=== PATIENT | female | born 1980 | race Caucasian/White ===

== ENCOUNTER 2017-02-19 17:44 | Inpatient (IN) ==
[2017-02-19] MEDS ORDERED: HYDROmorphone 2 MG/1 ML VIAL IV STA ×2 (20:06→23:18)
[2017-02-19] MEDS ORDERED: SODIUM CHLORIDE 0.9% 500 ML IV STA (20:06)
[2017-02-19] MEDS ORDERED: PANTOPRAZOLE 40 MG VIAL IV STA (20:06)
[2017-02-19] MEDS ORDERED: ONDANSETRON 4 MG/2 ML VIAL IV STA ×2 (20:06→23:18)
[2017-02-19] MEDS ORDERED: ALUM/MAG/SIMETH/LIDO VISC 1:1 30 ML BOTTLE PO STA (20:06)
[2017-02-19 20:23] LABS: Basophils # 0.1 10*3/uL (0.0-0.2); Basophils % 0.7 % (0.0-0.8); Eosinophils # 0.3 10*3/uL (0.0-0.87); Eosinophils % 2.7 % (0.00-10.9); Hematocrit 39.4 VOL% (35.7-47.0); Hemoglobin 12.6 GM/DL (12.0-16.0); Immature Granulocytes % 0.3 %; Immature Granulocytes Absolute 0.03 #; Lymphocytes % 30.5 % (21.3-54.2); Mean Corpuscular Hemoglobin 28 PG (27-34); Mean Corpuscular Volume 86.8 FL (87-102); Mean Platelet Volume 9.9 FL (9.6-12.0); Monocytes # 0.7 10*3/uL (0.11-0.8); Monocytes % 7.5 % (1.7-12.7); Neutrophils # 5.8 10*3/uL (1.4-7.4); Neutrophils % 58.3 % (38.7-73.9); Platelet Count 331 T/CUMM (130-400); Red Blood Count 4.54 MC/CUMM (3.8-5.5); Red Cell Distribution Width 15.1 % (9.3-17.3); White Blood Count 9.9 T/CUMM (4-12)
[2017-02-19] MEDS ORDERED: PANTOPRAZOLE 40 MG VIAL IV ONE (20:23)
[2017-02-19] MEDS ORDERED: ONDANSETRON 4 MG/2 ML VIAL ONE ×2 (20:23→23:22)
[2017-02-19] MEDS ORDERED: ALUM/MAG/SIMETH/LIDO VISC 1:1 30 ML BOTTLE PO ONE (20:24)
[2017-02-19] MEDS ORDERED: HYDROmorphone 2 MG/1 ML VIAL ONE ×2 (20:24→23:22)
--- NOTE | 2017-02-19 20:52 | Ultrasound Report ---
Exam: US gallbladder Date: 02/19/2017 8:06 PM Comparison: None Indication: Biliary colic Technique:[Multiple transabdominal real-time scans were obtained of the right upper quadrant. Color-flow scans obtained. Ultrasound images were captured and stored.] Findings: Multiple hyperechoic foci in the gallbladder with posterior acoustical shadowing. The wall of the gallbladder measures 4.2 mm. CBD is normal in size measuring 3.4 mm. The liver is enlarged with fatty infiltration. Right kidney measures 119 mm length with no mass masses or hydronephrosis. The pancreas, aorta including the aortic bifurcation, and IVC are obscured by bowel gas. Color flow documented in the portal vein. Impression: Cholelithiasis. The wall of the gallbladder is minimally thickened which may be related to acute cholecystitis. Biliary scan with ejection fraction may be helpful for further evaluation. Minimal enlargement of the liver with probable fatty infiltration. Pancreas and aorta are obscured by bowel gas. PROCEDURE INTERPRETED AT [facility] DEPARTMENT OF RADIOLOGY Final Report Signed by: Dr. Margarita Magaña
[2017-02-19 20:59] LABS: Alanine Aminotransferase 56 U/L (13-56); Albumin 4.1 G/DL (3.4-5.0); Alkaline Phosphatase 58 U/L (45-117); Amylase 52 U/L (25-115); Aspartate Amino Transferase 27 U/L (0-37); Blood Urea Nitrogen 13 MG/DL (7-18); Calcium 8.7 MG/DL (8.5-10.1); Glucose 84 MG/DL (74-106); Magnesium 2.2 MG/DL (1.8-2.4); Potassium 4.1 MMOL/L (3.5-5.1); Sodium 143 MMOL/L (136-145); Total Protein 7.6 G/DL (6.4-8.3); Troponin I Only < 0.015 NG/ML (0.00-0.045)
--- NOTE | 2017-02-19 21:05 | Emergency Department Note ---
Jess Macdonald Brittany, am scribing for, and in the presence of, Kamran Salinas MD 20:23. Rita Macdonald Charles R, MD, personally performed the services described in this documentation, ascribed by Teresita Mercado in my presence, and it is both accurate and complete . Arrival - Arrival Chief Complaint: Abdominal / Flank Pain Stated Complaint: gallbladder. pain/ nausea ED Nursing Triage Note: Pt c/o abd pain with nausea that got worse today. States she was told that she had gallbladder disease and needs a surgical consult but has not yet. Mode of Arrival: Ambulatory Limitations: No Limitations Source: Patient Time Seen by Provider: 02/19/17 19:50 - History of Present Illness HPI Narrative: This is a 36 y/o white female,who presents to the ED with c/o abdominal pain which started 4 days ago. She states the pain intensified today. She localizes the pain to the RUQ and epigastric areas of the abdomen. She reports nausea and vomiting. Pt reports she was seen at a "clinic" and had a US preformed which showed gallstones. Pt denies any other complaints/pain the ED at this time. Pt has a PMHx of HTN. Pt denies a surgical Hx. Pt denies a family medical Hx. Pt is a current every day smoker. Onset (ago): day(s) (Started 4 days ago) Consistency: constant Severity: moderate Date of Last Menstrual Period: last wk in December Allergies/Adverse Reactions: Allergies Allergy/AdvReac Type Severity Reaction Status Date / Time meperidine [From Demerol] AdvReac Palpitation Verified 02/19/17 18:01 s Home Medications: Home Medications Medication Instructions Recorded Confirmed Type Triamterene/Hydrochlorothiazid 0.5 each PO DAILY 02/19/17 02/19/17 History [Triamterene-Hctz 37.5-25 mg Tb] Review of System - Review of System 12 point system: reviewed and no additional remarkable complaints except as stated - Review of System Gastrointestinal: Present: abdominal pain, nausea, vomiting Medical,Surgical,& Family Hx - Medical History Cardio: History of: Hypertension - Social History Smoking Status: Current every day smoker Exam Vital Signs: Vital Signs Temperature 98.9 F 02/19/17 21:09 Pulse Rate 78 02/19/17 21:09 Respiratory Rate 16 02/19/17 21:09 Blood Pressure 181/113 02/19/17 21:09 O2 Sat by Pulse Oximetry 98 02/19/17 17:59 - General General appearance: alert, in no apparent distress - Head Head exam: Present: atraumatic, normocephalic, normal inspection - Eye Eye exam: Present: normal appearance, PERRL, EOMI. Absent: conjunctival injection, nystagmus, miosis, mydriasis - ENT ENT exam: Present: normal exam, normal oropharynx, mucous membranes moist, TM's normal bilaterally - Neck Neck exam: Present: normal inspection, full ROM, trachea midline. Absent: tenderness, meningismus, lymphadenopathy, thyromegaly - Chest Chest inspection: Present: normal inspection, symmetric chest wall rise. Absent : tenderness, rash, abscess - Respiratory Respiratory exam: Present: rhonchi (Bilateral Rhonchi). Absent: normal lung sounds bilaterally, prolonged expiratory phase, rales, respiratory distress, stridor, wheezes - Cardiovascular Cardiovascular exam: Present: regular rate, normal rhythm, normal heart sounds. Absent: murmur, rubs, gallop, clicks, JVD - Abdominal Exam Abdominal exam: Present: soft, tenderness (Upper gastric tendnerness as well as RUQ tendneress), normal bowel sounds, tenderness at McBurney's Point (Slight tenderness at McBurney's point), other (Left flank tenderness VS right flank tenderness). Absent: distention, guarding, rebound, rigidity - Rectal Exam Rectal exam: Present: deferred - Extremities Exam Extremities exam: Present: normal inspection, full ROM, normal capillary refill. Absent: tenderness, pedal edema, joint swelling, calf tenderness - Back Exam Back exam: Present: normal inspection, full ROM. Absent: tenderness, muscle spasm, rashes - Neurological Exam Neurological exam: Present: alert, oriented X3, CN II-XII intact. Absent: motor sensory deficit - Psychiatric Psychiatric exam: Present: normal affect, normal mood. Absent: depressed, agitated, anxious, flat affect, manic - Skin Skin exam: Present: warm, dry, intact, normal color. Absent: rash, cyanosis, diaphoresis, erythema, pallor, mottled Course - Consultations Consultation #1: Dr. Lemus will admit patient to the hospital Time: 22:58 Results - Labs CBC & BMP: 02/19/17 20:20 02/19/17 20:20 Lab Results: I have reviewed the patients labs - Diagnostic Findings Procedure: CT Abdomen and Pelvis: image reviewed by me, report reviewed by me ( Cholelithiasis with minimal enlargement of the liver. Cortical scarring in the kidneys with no renal or ureteral calculi. Increased fecal material in the colon consistent with constipation. 90 x 86x 57 mm fat containing midline ventral hernia above the level of the umbilicus. ), Ultrasound: report reviewed by me (Gallbladder US: Cholelithiatis. The wall of the gallbladder is minimally thickened which may be related to acute cholecystitis. Biliary scan with ejection fraction may be helpful for futher evaluation. Minimal enlargement of the liver probable fatty infiltration. Pancreas and aorta are obscured by bowel gas. ) Disposition Clinical Impression: Abdominal pain, Constipation, Cholelithiasis, Acute cholecystitis, Ventral wall hernia Case discussed with: patient Disposition: Still a Patient Condition: Stable Time of Disposition: 22:59
[2017-02-19 21:16] LABS: Barbiturates Screen,Urine Negative (Negative); Benzodiazepines Screen,Urine Negative (Negative); Cannabinoid Screen,Urine Negative (Negative); Opiate Screen,Urine Negative (Negative); Phencyclidine Screen,Urine Negative (Negative)
[2017-02-19 21:19] LABS: Apearance,Urine CLOUDY (Clear); Bacteria,Urine Many /HPF (Few); Bilirubin,Urine Negative (Negative); Blood, Urine Small mg/dL (Negative); Glucose,Urine (UA) Negative (Negative); Ketones,Urine Negative (Negative); Nitrite,Urine Negative (Negative); Protein,Urine Negative; RBC,Urine 7 /HPF (0-4); Squamous Epithelial Cell,Urine Few /HPF (0-10); Urine Color Yellow (Yellow); Urine Specific Gravity 1.009 (1.001-1.035); Urine Urobilinogen < 2.0 EU/DL (0.2-1.0); WBC,Urine 8 /HPF (0-6)
[2017-02-19] MEDS ORDERED: cefTRIAXone 1,000 MG in SODIUM CHLORIDE 0.9% 100 ML IV STA (21:42)
[2017-02-19] MEDS ORDERED: cefTRIAXone 1,000 MG VIAL ONE (21:44)
[2017-02-19] MEDS ORDERED: SODIUM CHLORIDE 0.9% 100 ML IV ONE (21:44)
--- NOTE | 2017-02-19 22:10 | XRay Report ---
Exam: XR abdomen 2V Date: 02/19/2017 8:06 PM Comparison: None Indication: Generalized abdominal pain Technique:[Supine and erect abdomen] Findings: Nonobstructed bowel gas pattern. Increased fecal material in colon. No free air. No acute osseous findings. Spina bifida occulta defect at S1. Transition vertebra. Impression: Nonobstructed bowel gas pattern with increased fecal material consistent with constipation. Spina bifida occulta defect at S1. PROCEDURE INTERPRETED AT [facility] DEPARTMENT OF RADIOLOGY Final Report Signed by: Dr. Margarita Magaña
--- NOTE | 2017-02-19 22:16 | CT Report ---
Referring physician: Kamran Salinas EXAM: CT abdomen and pelvis without contrast DATE: 02/19/2017 COMPARISON: None REASON: Generalized abdominal pain with left flank tenderness TECHNIQUE: Axial images of the abdomen and pelvis were obtained without the use of contrast. Coronal and sagittal reformatted images were also provided. Total DLP is 1668.10 mGy*cm. FINDINGS: Dependent findings/atelectasis in the lower lobes with cardiac fat pads. The liver is minimally enlarged with no dilated ducts. Cholelithiasis. The spleen, pancreas, and kidneys have an unremarkable appearance except for minimal cortical scarring in the kidneys. No renal or ureteral calculi are identified. The adrenal aorta is normal in size with no adjacent adenopathy. No dilatation of the small bowel. Increased fecal material in the colon with no evidence of diverticulitis, appendicitis, free air, or free fluid. No pelvic masses are identified with unremarkable urinary bladder. 90 x 86 x 57 mm fat-containing midline ventral hernia above the level of the umbilicus. IMPRESSION: Cholelithiasis with minimal enlargement of the liver. Cortical scarring in the kidneys with no renal or ureteral calculi. Increased fecal material in the colon consistent with constipation. 90 x 86 x 57 mm fat-containing midline ventral hernia above the level of the umbilicus. The CT exam was performed using one or more of the following dose reduction techniques: Automated exposure control and adjustment of the mA and/or kV according to patient size. PROCEDURE INTERPRETED AT [facility] DEPARTMENT OF RADIOLOGY Final Report Signed by: Dr. Margarita Magaña
[2017-02-20] MEDS: SODIUM CHLORIDE 0.9% 1,000 ML IV SCH ×3 (00:43→18:49)
--- NOTE | 2017-02-20 03:44 | EKG Report ---
Stationary ECG Study [facility] ER Test Date: 02/19/2017 8:38:46 PM Pat Name: YOU YANEZ Department: Room: 342 Gender: F Electrical Systems Designer: FINA JOHNSON : 1980 Requested by: Kamran Jones Order Number: [id number] Reading MD: JESSI SIMEON Intervals [place] Rate: 70 P: 55 SD: 185 QRS: 24 QRSD: 94 T: 24 QT: 391 QTc: 412 Interpretive Statements SINUS RHYTHM WNL Electronically Signed On 02-20-17 09:54:21 CDT by JESSI SIMEON [email or web address]
[2017-02-20 05:15] LABS: Basophils # 0.1 10*3/uL (0.0-0.2); Basophils % 0.6 % (0.0-0.8); Eosinophils # 0.2 10*3/uL (0.0-0.87); Eosinophils % 2.4 % (0.00-10.9); Hematocrit 36.1 VOL% (35.7-47.0); Hemoglobin 11.3 GM/DL (12.0-16.0); Immature Granulocytes % 0.3 %; Immature Granulocytes Absolute 0.03 #; Lymphocytes # 3.4 10*3/uL (1.4-4.0); Lymphocytes % 33.8 % (21.3-54.2); Mean Corpuscular HGB Conc 31.3 GM/DL (32-36); Mean Corpuscular Hemoglobin 27 PG (27-34); Mean Corpuscular Volume 87.6 FL (87-102); Mean Platelet Volume 10.4 FL (9.6-12.0); Monocytes # 0.9 10*3/uL (0.11-0.8); Monocytes % 8.6 % (1.7-12.7); Neutrophils # 5.5 10*3/uL (1.4-7.4); Neutrophils % 54.3 % (38.7-73.9); Platelet Count 317 T/CUMM (130-400); Red Blood Count 4.12 MC/CUMM (3.8-5.5); Red Cell Distribution Width 15.2 % (9.3-17.3); White Blood Count 10.2 T/CUMM (4-12)
[2017-02-20 05:57] LABS: Albumin 3.6 G/DL (3.4-5.0); Bilirubin,Total 0.8 MG/DL (0.2-1.0); Calcium 8.4 MG/DL (8.5-10.1); Magnesium 2.5 MG/DL (1.8-2.4); Osmolality,Calculated 286.8 MOS/KG (273-304); Potassium 4.3 MMOL/L (3.5-5.1); Total Protein 6.8 G/DL (6.4-8.3)
--- NOTE | 2017-02-20 07:52 | General Surg History&Physical ---
Assessment and Plan - Time spent with patient Time spent with patient: Greater than 30 minutes (1) Epigastric hernia with obstruction Status: Acute Assessment and plan: 02/20/17 Large incarcerated epigastric abdominal hernia. CT indicates there is only fat incarcerated at this time. We will plan to approach this area for the lap cholecystectomy and formally repair-either with or without a mesh closure- at the end of the lap cholecystectomy. This has been discussed with the patient by Dr Lemus, including risks, benefits, potential alternatives and complications , and she wishes to proceed. Current Visit: Yes (2) Acute cholecystitis Status: Acute Assessment and plan: 02/20/17 Acute, likely also with chronic cholecystitis with cholelithiasis. No imaging or lab evidence of obstruction. We have discussed surgery and she is anxious to proceed. Will plan for later today. Current Visit: Yes History of Present Illness Chief complaint: Abdominal pain, intractible History of present illness: Ms. Gaytan is a 36 year old female Home Medications Medication Instructions Recorded Confirmed Type Triamterene/Hydrochlorothiazid 0.5 each PO DAILY 02/19/17 02/19/17 History [Triamterene-Hctz 37.5-25 mg Tb] Allergies Allergy/AdvReac Type Severity Reaction Status Date / Time meperidine [From Demerol] AdvReac Palpitation Verified 02/19/17 18:01 s Medical,Surgical,& Family Hx - Medical History Cardio: History of: Hypertension Genitourinary: History of: Kidney Stones - Family History Family History: Reports;: Family Diabetes (both parents), Family Heart Disease ( mother) - Social History Smoking Status: Current every day smoker Exam - Constitutional Vitals: Period Temp Pulse Resp BP Sys/Juarez Pulse Ox Last 24 Hr 98.0 F-98.9 F 56-90 14-20 122-181/80-113 89-98 General appearance: mild distress, over weight, other (AAOx3; cooperative, in a moderate amount of pain but she gives a good and thorough history of her presenting problem, symptoms, and past history.) - Head Head exam: Present: normal inspection - Eye Eye exam: Present: EOMI Pupils: Present: DILSHAD - ENT Mouth exam: Present: normal external inspection, normal voice, dry mucosa - Respiratory Respiratory exam: Absent: accessory muscle use, rales, wheezes - Cardiovascular Cardiovascular exam: Present: RRR - GI/Abdominal GI/Abdominal exam: Present: hypoactive bowel sounds, hernia (As noted), other ( Obese with large epigastric abdominal hernia that is not completely reducible. It is moderately tender. Also with tenderness of the RUQ; no tati guarding. NO Periumbilical or suprapubic tenderness. ) - Extremities Exam Extremities exam: Present: normal inspection - Back Exam Back exam: Absent: CVA tenderness (L), CVA tenderness (R) - Neurological Exam Neurological exam: Present: alert, oriented X3 Speech: Present: normal - Constitutional Constitutional: Present: other (Known epigastric abdominal hernia) - Gastrointestinal Gastrointestinal: Present: constipation, dyspepsia (Fried/fatty/spicy food intolerance x at least 3 months) Results - Labs CBC & BMP: 02/20/17 04:44 02/20/17 04:44 Lab Results: I have reviewed the past 24 hour labs (Labs noted, in particular, no elevated LFTs in a patient with gallstones and clinicial history c/w cholecystitis. CT reviewed. Large fat- incarcerated epigastric abdominal hernia. )
--- NOTE | 2017-02-20 09:21 | XRay Report ---
XR chest 2V Indication: SOB Comparison: None Technique: Frontal and lateral views of the chest. Findings: Borderline cardiomegaly. Low lung volumes with bronchovascular crowding. There is mild patchy opacification within the bilateral lung bases suspicious for pneumonia. Atelectasis may also have a similar appearance. Visualized osseous and surrounding soft tissue structures demonstrate no acute abnormality. IMPRESSION: As above. PROCEDURE INTERPRETED AT [facility] DEPARTMENT OF RADIOLOGY Final Report Signed by: Dr Parish Cotton
--- NOTE | 2017-02-20 09:22 | XRay Report ---
XR abdomen 2V Indication: Generalized abdominal pain Comparison: Abdominal x-ray dated February 19, 2017 Technique: Frontal views of the abdomen in the supine and upright position. Findings: Nonspecific nonobstructive bowel gas pattern. No free intraperitoneal air. Visualized osseous and surrounding soft tissue structures appear grossly unchanged. IMPRESSION: No acute abnormality demonstrated. PROCEDURE INTERPRETED AT [facility] DEPARTMENT OF RADIOLOGY Final Report Signed by: Dr Parish Cotton
[2017-02-20] MEDS: HYDROmorphone 2 MG/1 ML VIAL IV PRN ×6 (10:08→20:32)
[2017-02-20] MEDS: TRIAMTERENE/HCTZ 37.5-25 MG TABLET PO SCH (10:12)
[2017-02-20] MEDS: PANTOPRAZOLE 40 MG VIAL IV SCH (10:13)
[2017-02-20] MEDS ORDERED: FAMOTIDINE 20 MG TABLET PO ONE (11:34)
[2017-02-20] MEDS ORDERED: BUPIVACAINE MPF 0.25% /EPI 30 ML VIAL ONE (12:30)
[2017-02-20] MEDS ORDERED: PROPOFOL 200 MG/20 ML VIAL IV ONE (12:44)
[2017-02-20] MEDS ORDERED: ONDANSETRON 4 MG/2 ML VIAL ONE (12:44)
[2017-02-20] MEDS ORDERED: GLYCOPYRROLATE 0.4 MG/2 ML VIAL ONE (12:44)
[2017-02-20] MEDS ORDERED: DEXAMETHASONE 10 MG/1 ML VIAL ONE (12:44)
[2017-02-20] MEDS ORDERED: LIDOCAINE 2% 5 ML VIAL ONE (12:44)
[2017-02-20] MEDS ORDERED: SUCCINYLCHOLINE 200 MG/10 ML VIAL ONE (12:44)
[2017-02-20] MEDS ORDERED: NEOSTIGMINE 10 MG/10 ML VIAL ONE (12:44)
[2017-02-20] MEDS ORDERED: ROCURONIUM 100 MG/10 ML VIAL IV ONE (12:44)
[2017-02-20] MEDS ORDERED: KETOROLAC 30 MG/1 ML VIAL ONE (12:44)
[2017-02-20] MEDS ORDERED: ceFAZolin 1,000 MG VIAL ONE (14:43)
[2017-02-20] MEDS ORDERED: fentaNYL 100 MCG/2 ML VIAL ONE (16:18)
[2017-02-20] MEDS ORDERED: MIDAZOLAM 2 MG/2 ML VIAL ONE (16:18)
[2017-02-20] MEDS ORDERED: ONDANSETRON 4 MG/2 ML VIAL IV PRN (16:38)
--- NOTE | 2017-02-20 16:40 | Operative Note ---
Date of procedure: 02/20/17 Pre-op diagnosis: Cholelithiasis with incarcerated epigastric hernia Post-op diagnosis: same Procedure: Operative note: Preoperative diagnosis: 1. Cholelithiasis cholecystitis. 2. Incarcerated ventral epigastric hernia Postop diagnosis: Same Procedure: 1. Laparoscopic cholecystectomy with intraoperative cholangiogram. 2. Reduction with Stratus mesh repair of ventral epigastric hernia Surgeon Dr. Lemus Leather Carver Roya Dietz, TAIL WORKER ACNP Anesthesia was general endotracheal with local Brief history: Obese 36-year-old white female who comes in because of recurring abdominal pain in the epigastric area radiating to her back. She has had this for a couple years with worsening episodes with greasy fried fatty foods at this time. She was attempting to begin her routine to try to lose some weight with this pain was persisting and recurrent at this time. She was found to have gallstones but did not do anything about it but came to the emergency room at this time ultrasound again showed gallstones with some thickening of the gallbladder wall. CT scan of the abdomen and pelvis was also performed that showed a large fat-containing epigastric ventral ventral hernia. In order to do the gallbladder we probably have to do the hernia at the same time so we like to bring on down surgery at this time and get these 2 things repaired. Procedure: With patient supine position prepped and draped in a sterile fashion timeout and antibiotics completed approaches area of the mass at just above the umbilicus. Infiltrated around with local anesthetic and made an incision to the skin subtenons tissue dissected down to subtenons tissue to identify the hernia sac. Carefully dissected around the hernia sac until I could get down to the fascia. The fascia was present I could see it with the hernia sac and a large amount of what appeared to be omentum in it. I did up opening the hernia sac so that I can get to the omentum. I could not reduce it because of the amount of omentum that was out. At that point I went across the omentum multiple times with Caity clamps and tying these with 2-0 Ethibond ties to reduce the amount of omentum that was out. Once I had a little less omentum out I was able to reduce the risk of it back into the abdominal cavity and trim out the hernia sac. With that completed then I placed a trocar into this hernia defect and closed it down with a running 0 Monocryl suture in order to get a good seal. With the trocar in place and we instilled 3 L of CO2 into the abdomen put our scope and begin to look around. If they look good we can see the liver was not fatty in nature but not to be enlarged but the gallbladder was pale and plaza and thickened at this time. At that point we placed into trochars in the anterior axillary midclavicular line of #5 Serbian trochars. We then placed in the epigastric 11 mm trocar all under direct vision. With that completed we will put the patient upright tilted left side position. I was able to lift up the liver and the gallbladder finding adhesions from the underside of it. I was able to grasp the mucosal bit thick and then carefully dissected those adhesions from the underside of the gallbladder free. This appeared to be a long gallbladder but were able to get it up enough to get to the infundibulum and grasped with a grasper. With careful dissection I can see the cystic duct cystic artery. I like to go ahead and give secure the cystic artery putting 3 clips on approximately 1 distally and dividing it. I then carefully dissected out the cystic duct placed a clip on approximately. We then made an incision and cystic duct placed a cholangiocatheter and clipped it in place. Brought the C arm up and then multiple x-rays show that we were in the cystic duct good flow into the duodenum and upper radicles look normal. At that point we remove the Cholangiocath and I placed 3 clips across the distal part of the cystic duct and we divided it. With that completed then I begin to dissected out the gallbladder by incising peritoneal attachments anteriorly and posteriorly and using sharp and blunt dissection with electrocauterization to carefully dissected gallbladder out the liver bed. Once a gallbladder was free we then washed irrigated cleaned above and below the liver and the use light cauterization controlling bleeding. With the liver bed looking dry there we put the gallbladder in an Endo Catch bag and pulled out through the umbilical port. With that completed we removed our other trochars. Went back to the umbilical defect at this time at the epigastric area and carefully began to dissected out the fascial planes at this point. I was able to do a dissection underneath the fascia to free up the peritoneum and then closed it with a running 0 Vicryl suture. We did a preperitoneal placement of a Stratus mesh and sutured into the fascia with 0 Prolene sutures securing it in place. Once it was in good place I closed the fascia over the mesh with a running 0 Prolene suture. With that in good shape we washed and cleaned out with Ancef solution and saline solution into the abdomen. We then made a separate stab wound related #7 Isacc-Christian drain and closed subtenons tissue running 3-0 Vicryl closed the skin with skin clips in the main incision as well as the trocar sites. Dressings were applied and the patient was in was taken recovery room. Estimated blood loss 30 cc Sponge count correct 2 Drains one #7 Isacc-Christian Complications none Condition stable satisfactory Anesthesia: GETA, local (0.25% Marcaine with epinephrine mixed [id number] 1% Xylocaine plain) Surgeon / Physician: Dave Lemus Leather Carver: Roya Dietz Estimated blood loss: other (30 cc) Specimens: other (Gallbladder and hernia sac and contents) Condition: stable Disposition: floor Results - Labs CBC & BMP: 02/20/17 04:44 02/20/17 04:44 Discharge Plan - Discharge Medications No Action Triamterene/Hydrochlorothiazid [Triamterene-Hctz 37.5-25 mg Tb] 0.5 each PO DAILY - Follow Up or Referral - Forms/Instructions
--- NOTE | 2017-02-20 17:44 | Anesthesia Post-Op ---
Anesthesia Post OP - Post Ansesthetic Evaluation Patient seen in post op: Yes Resp: within normal limits CV: within normal limits Mental: within normal limits Temp: within normal limits [id number]: within normal limits Nausea and Vomiting: within normal limits Pain: within normal limits
[2017-02-20] MEDS: DEXTROSE 5% NACL 0.45% 1,000 ML IV SCH (18:51)
[2017-02-20] MEDS: ONDANSETRON 4 MG/2 ML VIAL IV PRN (20:33)
[2017-02-21] MEDS: HYDROmorphone 2 MG/1 ML VIAL IV PRN ×6 (00:46→21:25)
[2017-02-21] MEDS: DEXTROSE 5% NACL 0.45% 1,000 ML IV SCH ×5 (00:50→21:27)
[2017-02-21] MEDS: ONDANSETRON 4 MG/2 ML VIAL IV PRN ×2 (05:36→12:18)
[2017-02-21 05:48] LABS: Basophils % 0.2 % (0.0-0.8); Eosinophils % 0.1 % (0.00-10.9); Hematocrit 33.5 VOL% (35.7-47.0); Hemoglobin 10.4 GM/DL (12.0-16.0); Immature Granulocytes % 0.4 %; Immature Granulocytes Absolute 0.06 #; Lymphocytes # 1.7 10*3/uL (1.4-4.0); Lymphocytes % 11.4 % (21.3-54.2); Mean Corpuscular Hemoglobin 27 PG (27-34); Mean Corpuscular Volume 87.5 FL (87-102); Mean Platelet Volume 10.7 FL (9.6-12.0); Monocytes # 1.1 10*3/uL (0.11-0.8); Monocytes % 7.6 % (1.7-12.7); Neutrophils # 11.7 10*3/uL (1.4-7.4); Neutrophils % 80.3 % (38.7-73.9); Platelet Count 302 T/CUMM (130-400); Red Blood Count 3.83 MC/CUMM (3.8-5.5); White Blood Count 14.5 T/CUMM (4-12)
[2017-02-21 06:32] LABS: Albumin 3.2 G/DL (3.4-5.0); Bilirubin,Total 0.8 MG/DL (0.2-1.0); Calcium 8.1 MG/DL (8.5-10.1); Osmolality,Calculated 282.1 MOS/KG (273-304); Potassium 4.4 MMOL/L (3.5-5.1); Total Protein 6.2 G/DL (6.4-8.3)
[2017-02-21] MEDS: TRIAMTERENE/HCTZ 37.5-25 MG TABLET PO SCH (08:42)
[2017-02-21] MEDS: PANTOPRAZOLE 40 MG VIAL IV SCH (08:43)
[2017-02-21] MEDS ORDERED: BISACODYL 10 MG SUPP RECTAL ONE (08:47)
--- NOTE | 2017-02-21 08:54 | General Surgery Progress Note ---
Assessment and Plan (1) Epigastric hernia with obstruction Status: Acute Assessment and plan: 02/20/17 Large incarcerated epigastric abdominal hernia. CT indicates there is only fat incarcerated at this time. We will plan to approach this area for the lap cholecystectomy and formally repair-either with or without a mesh closure- at the end of the lap cholecystectomy. This has been discussed with the patient by Dr Lemus, including risks, benefits, potential alternatives and complications , and she wishes to proceed. 02/21/2017. Patient is stable postop repair of large incarcerated epigastric abdominal hernia and laparoscopic cholecystectomy. Labs and VS stable. We will plan to advance her diet as tolerated, pending resolution of her nausea. Nurses are teaching her to manage her ANIA drain and incisions. She would like to get up and take shower, will do that this morning; if she tolerates this well and is able to ambulate with minimal assistance which should be able to discharge home tomorrow. Current Visit: Yes (2) Acute cholecystitis Status: Acute Assessment and plan: 02/20/17 Acute, likely also with chronic cholecystitis with cholelithiasis. No imaging or lab evidence of obstruction. We have discussed surgery and she is anxious to proceed. Will plan for later today. 02/21/2017. Stable post op lap dianne. Will advance diet and ambulate. She has some constipation, so we will get a dulcolax suppository and start colace. Home tomorrow if she does well. Current Visit: Yes Subjective Patient reports: Present: nausea Exam - Constitutional Vitals: Period Temp Pulse Resp BP Sys/Juarez Pulse Ox Last 24 Hr 96.9 F-98.9 F 60-93 16-20 118-150/69-107 91-99 General appearance: over weight, other (Patient is awake sitting up in bed. She is not in any acute distress.) - Respiratory Respiratory exam: Absent: rales, wheezes - GI/Abdominal GI/Abdominal exam: Present: other (Abdomen is appropriately tender postop. Incisions clean and dry, Isacc-Christian drain with serous drainage involved. Hypoactive bowel sounds.) - Neurological Exam Neurological exam: Present: alert, oriented X3 Results - Labs CBC & BMP: 02/21/17 05:02 02/21/17 05:02 Lab Results: I have reviewed the past 24 hour labs Quality Measures - VTE Contraindication to Pharmacological VTE Prophylaxis: High Risk of Bleeding
[2017-02-21] MEDS: PANTOPRAZOLE 40 MG TABLET PO SCH (09:16)
[2017-02-21] MEDS: DOCUSATE SODIUM 100 MG CAPSULE PO SCH (20:30)
[2017-02-22] MEDS: ACETAMINOPHEN 325 MG TABLET PO PRN ×2 (02:21→18:00)
[2017-02-22] MEDS: HYDROmorphone 2 MG/1 ML VIAL IV PRN ×4 (05:45→22:35)
[2017-02-22] MEDS ORDERED: BISACODYL 5 MG TABLET PO ONE (08:46)
[2017-02-22] MEDS: PANTOPRAZOLE 40 MG TABLET PO SCH (10:48)
[2017-02-22] MEDS: TRIAMTERENE/HCTZ 37.5-25 MG TABLET PO SCH (10:48)
[2017-02-22] MEDS: ONDANSETRON 4 MG/2 ML VIAL IV PRN ×2 (10:49→18:00)
[2017-02-22] MEDS: DEXTROSE 5% NACL 0.45% 1,000 ML IV SCH ×2 (10:49→12:03)
[2017-02-22] MEDS ORDERED: PROMETHAZINE 25 MG/1 ML VIAL IM PRN (12:15)
--- NOTE | 2017-02-22 12:20 | Pathology Report from [facility] ---
[facility] [place] ACCESSION # : [id number] PATIENT NAME : Viry Yanez ORDERING DR : ROXANA REYNOLDS MD CLINICAL HX: Cholecystitis, cholelithiasis, epigastric hernia POST-OP DX: Same SPECIMEN INFO: #1 Portion of omentum (20 x 20 cm fragment) #2 Hernia sac #3 Gallbladder GROSS DESCRIPTION: #1 Received in formalin labeled with the patients name VIRY YANEZ and #1 consists of a 20.0 x 20.0 cm fragment of omentum. [employer] sections submitted in cassette #1.#2 Received in formalin labeled with the patients name VIRY YANEZ and #2 consists of a 6.0 x 4.0 cm fibromembranous tissue fragment. [employer] Data Platform Architect sections submitted in cassette #2.#3 Received in formalin labeled with the patients name VIRY YANEZ and #3 consists of a gallbladder measuring 12.5 x 3.5 cm. The serosa is smooth and light matos. The wall averages 0.2 cm in thickness. The mucosal surface has a light matos fibrous appearance. The gallbladder contains clear bile with multiple yellow-plaza stones noted measuring 4.5 x 2.0 cm in aggregate. Several stones are impacted within the neck of the gallbladder. [employer] Data Platform Architect sections submitted in cassette #3. DIAGNOSIS FOR VIRY YANEZ: #1 PORTION OF OMENTUM: Omental tissue with congestion.#2 HERNIA SAC, EPIGASTRIC: Hernia sac with fibrosis, congestion and hemorrhage of the wall.#3 GALLBLADDER, CHOLECYSTECTOMY: Chronic cholecystitis; cholelithiasis. COLLECTED DATE: 02/21/2017 [facility] REPORT DATE: 02/22/2017 ELECTRONICALLY SIGNED BY: Geri Smith M.D. 02/22/2017 - 9:58:25 [facility]
[2017-02-22] MEDS: DOCUSATE SODIUM 100 MG CAPSULE PO SCH (20:18)
[2017-02-23] MEDS: DEXTROSE 5% NACL 0.45% 1,000 ML IV SCH (02:15)
[2017-02-23] MEDS: ACETAMINOPHEN 325 MG TABLET PO PRN (02:20)
[2017-02-23] MEDS: HYDROmorphone 2 MG/1 ML VIAL IV PRN ×2 (04:05→08:18)
[2017-02-23 07:35] LABS: Basophils # 0.1 10*3/uL (0.0-0.2); Basophils % 0.6 % (0.0-0.8); Eosinophils # 0.2 10*3/uL (0.0-0.87); Eosinophils % 2.3 % (0.00-10.9); Hematocrit 35.2 VOL% (35.7-47.0); Hemoglobin 10.8 GM/DL (12.0-16.0); Immature Granulocytes % 0.3 %; Immature Granulocytes Absolute 0.03 #; Lymphocytes # 2.7 10*3/uL (1.4-4.0); Lymphocytes % 27.1 % (21.3-54.2); Mean Corpuscular HGB Conc 30.7 GM/DL (32-36); Mean Corpuscular Hemoglobin 28 PG (27-34); Mean Corpuscular Volume 89.6 FL (87-102); Mean Platelet Volume 10.3 FL (9.6-12.0); Monocytes # 0.9 10*3/uL (0.11-0.8); Monocytes % 8.9 % (1.7-12.7); Neutrophils # 6.1 10*3/uL (1.4-7.4); Neutrophils % 60.8 % (38.7-73.9); Platelet Count 288 T/CUMM (130-400); Red Blood Count 3.93 MC/CUMM (3.8-5.5); Red Cell Distribution Width 14.8 % (9.3-17.3); White Blood Count 10.1 T/CUMM (4-12)
[2017-02-23] MEDS ORDERED: IBUPROFEN 200 MG TABLET PO PRN (08:17)
--- NOTE | 2017-02-23 08:23 | General Surgery Progress Note ---
Assessment and Plan - Time spent with patient Time spent with patient: Less than 30 minutes (1) Cholelithiasis Status: Acute Assessment and plan: 02/23/2017. Patient is postop laparoscopic cholecystectomy with a normal intraoperative cholangiogram. She seems to have done well with this and has tolerated her diet well without any changes or labs. Hematocrit remained stable at 33. Current Visit: Yes (2) S/P epigastric hernia repair, follow-up exam Status: Acute Assessment and plan: 02/23/2017. Patient is in addition to her laparoscope cholecystectomy is status post a mesh repair of an epigastric hernia that had omental incarceration in it. We had put a mesh in due to her size and so far the wound is done well remains unusually tender to her. Incision looks clean and dry and the ANIA drainage is slowly decreasing. She is finally had a bowel movement but she still not very active at this time. Today we were hoping to send her home but she is complaining of severe headache and it is unclear that we can get her home especially since she "lives alone has noticed social help at this time to help her recover from this. Did not feel comfortable sending her home in this situation so we will try a few things to see if we can get her feeling better get her more functional before sending her. Current Visit: Yes (3) Hypertension Status: Acute Assessment and plan: 02/23/2017. Patient was complaining of severe headache today stating that her blood pressure was elevated to 180/100 but yet the recorded blood pressures at the highest was 160/90. None of the blood pressures that I see on the chart appears to be very high at this time and she is on her antihypertensive medications at this time. Will just keep her here and observe her blood pressures and see what they do and see if we get her headache under control. Current Visit: Yes Qualifiers: Hypertension type: essential hypertension Qualified Code(s): I10 - Essential (primary) hypertension Subjective Patient reports: Present: still having pain, tolerating a regular diet, bowel movement, afebrile, other (Patient complaining of bad headache today. She feels it is related to her blood pressure.) Exam - Constitutional Vitals: Period Temp Pulse Resp BP Sys/Juarez Pulse Ox Last 24 Hr 97.7 F-98.0 F 64-86 18-20 123-161/55-95 91-98 General appearance: mild distress - Head Head exam: Present: normal inspection - ENT ENT exam: Present: normal exam - Neck Neck exam: Present: normal inspection - Respiratory Respiratory exam: Present: clear to auscultation bilaterally, rales - Cardiovascular Cardiovascular exam: Present: RRR - GI/Abdominal GI/Abdominal exam: Present: distended (Mild), hypoactive bowel sounds, tenderness (Tenderness still about the incision especially the epigastric incision), soft, other (ANIA drain is decreasing) - Extremities Exam Extremities exam: Present: normal inspection - Neurological Exam Neurological exam: Present: alert, oriented X3, CN II-XII intact - Skin Skin exam: Present: normal color, warm, dry Results - Labs CBC & BMP: 02/23/17 07:22 02/21/17 05:02 Lab Results: I have reviewed the past 24 hour labs Quality Measures - VTE Contraindication to Pharmacological VTE Prophylaxis: High Risk of Bleeding Specialty Discharge - Follow Up or Referrals Follow up with: Dave Lemus MD [Physician] -
[2017-02-23 08:24] LABS: Albumin 3.6 G/DL (3.4-5.0); Bilirubin,Total 0.5 MG/DL (0.2-1.0); Calcium 8.7 MG/DL (8.5-10.1); Potassium 3.8 MMOL/L (3.5-5.1); Total Protein 6.8 G/DL (6.4-8.3)
[2017-02-23] MEDS: TRIAMTERENE/HCTZ 37.5-25 MG TABLET PO SCH (08:24)
[2017-02-23] MEDS ORDERED: KETOROLAC 15 MG/1 ML VIAL IV SCH (08:30)
[2017-02-23] MEDS: PANTOPRAZOLE 40 MG TABLET PO SCH (08:36)
[2017-02-23] MEDS ORDERED: POLYETHYLENE GLYCOL POWDER 17 GM PACK PO SCH (09:00)
[2017-02-23 11:11] VITALS: BP 159/73
--- NOTE | 2017-02-23 12:41 | Discharge Summary ---
Hospital Course - Hospital Course Hospital Course: Discharge summary: Discharge diagnosis: 1. Cholecystitis with cholelithiasis. 2. Incarcerated epigastric ventral hernia 3. Hypertension 4. Obesity moderate 5. Constipation. Procedure: 1. Laparoscopic cholecystectomy with intraoperative cholangiogram. 2. Reduction with spread Stratus mesh repair of hernial defect Surgeon Dr. Lemus Bead Forming Machine Set Up Operator Roya Dietz, CALEB Brief summary: 36-year-old white female comes in with abdominal pain has been recurrent that she is had for several months may be up to 2 years especially with certain foods. She had changed her activity level was trying to increase her activities when she had this episode. She came in where it was clear on ultrasound she had stones in the gallbladder was tender in that area. She was admitted for the consideration of laparoscopic cholecystectomy at this time with her liver function studies looking normal. Unfortunately things were complicated by her obesity and the fact that there was a large epigastric ventral hernia that apparently she knew about for some time. It appeared to have fat out in it at this point. We elected to go ahead and bring her surgery and try to repair both these areas at same time. At the time of surgery we found omentum and this hernia sac we had to remove a portion of of the omentum in order to reduce it back in. We then used this hernia defect as a port side and then did a laparoscopic cholecystectomy with an intraoperative cholangiogram that was normal. Once gallbladder was out then we took a Stratus mesh and repaired this defect in the abdominal wall in a preperitoneal fashion. We placed a drain in place to drain the subtenons tissue. Postoperatively she is had a complicated course with a lot more abdominal discomfort probably related to the hernia repair more than the gallbladder part. She has some constipation were able to get her bowels functioning with some relief there. She has had some hypertension complaints with along with headaches associated with that but she is on her medication at this time. Her last blood pressure was 165/90 in general and stable. The ANIA drainage has been slowly decreasing but is still enough that we want to leave the drain in for now to get it out later in the office. Her incisions have been healing nicely and looking clean and dry with no sign of infection and we given her instructions on the care of the wound and how to keep it protected. She has clips in place and will need to get those out when she gets to the office. We were reluctant to send her home because she Indicated that she had nobody with her but today is somebody has shown up this is going to be with her at this time and so we think it may be safe to send her especially since she is insistent about going. She has been tolerating her diet fairly well we got bowels functioning at this time and given careful instructions on everything including activity. Will have her call the office on Sunday and if the drainage is very minimal we will get her in for drip pulling the drain if not we will follow-up in week from Sunday to get the drain out and clips. - Time spent with patient Time with patient DS: Greater than 30 minutes Diagnosis - Discharge Diagnosis (1) Cholelithiasis Status: Resolved (2) S/P epigastric hernia repair, follow-up exam Status: Resolved (3) Hypertension Status: Chronic Specialty Discharge - Follow Up or Referrals Follow up with: Dave Lemus MD [Physician] - 03/06/17 - Speciality Discharge Instructions Surgery Instructions: 1. Must record daily the amount of ANIA drainage and call us on Sunday the amount to see if we can get the drain out early. 2. May shower but keep clean dressing over the incisions until we are able to clips out. 3. Drink plenty of fluids and eat soft diet at this time. 4. Laxative of choice if she should go a couple days without a bowel movement. 5. May ride in a car and going downstairs but no heavy lifting or straining. 6. No driving until she comes back to see us Discharge Plan - Discharge Data Disposition: Disch To Home/Self Care Condition at Discharge: Stable Discharge Diet: advance to your usual diet Activity: increase activity as tolerated, no lifting, no prolonged standing Hygiene: may shower Weight Bearing at Discharge: full weight bearing Driving: not until seen by doctor Contact your physician if you experience:: fever over 101, Redness or swelling, Nausea/Vomiting, Shortness of breath, pain uncontrolled by pain medications Wound / Dressing Care Instructions: Abdominal wounds and drain sites daily. 1. Shower and use soap of choice. 2. Apply a 4 x 4 gauze to the incisions and drain site but keep it covered at all times - Discharge Medications New Docusate Sodium Cap [Colace Cap] 100 mg PO BID #30 capsule HYDROcodone/ACETAMIN 7.5-325 [Sul[place]ur 7.5-325] 1 tablet PO Q6H PRN #40 tablet PRN Reason: Pain Moderate (4-7) Ketorolac Tab [Toradol Tab] 10 mg PO Q8H #15 tablet Polyethylene Glycol Powder [Miralax] 17 gm PO BID #1 bottle Acetaminophen Tab [Tylenol Tab] 650 mg PO Q6H PRN tablet PRN Reason: Pain Mild (1-3) And/Or Fever Promethazine Tab [Phenergan Tab] 12.5 mg PO Q6H PRN #20 tablet PRN Reason: Nausea/Vomiting Continue Triamterene/Hydrochlorothiazid [Triamterene-Hctz 37.5-25 mg Tb] 0.5 each PO DAILY - Follow Up or Referral Follow Up: Dave Lemus MD [Physician] - - Forms/Instructions Exam - Constitutional Vitals: Period Temp Pulse Resp BP Sys/Juarez Pulse Ox Last 24 Hr 97.7 F-98.0 F 64-94 18-20 123-161/55-95 91-98 General appearance: mild distress - Head Head exam: Present: normal inspection - ENT ENT exam: Present: normal exam - Neck Neck exam: Present: normal inspection - Respiratory Respiratory exam: Present: clear to auscultation bilaterally, rales - Cardiovascular Cardiovascular exam: Present: regular rate and rhythm - GI/Abdominal GI/Abdominal exam: Present: hypoactive bowel sounds, tenderness (About the incision of the hernia just above the umbilicus. ), soft, other (ANIA drainage is moderate) - Extremities Exam Extremities exam: Present: normal inspection - Back Exam Back exam: Present: normal inspection - Neurological Exam Neurological exam: Present: alert, oriented X3, CN II-XII intact - Psychiatric Psychiatric exam: Present: normal affect, normal mood, anxious - Skin Skin exam: Present: normal color, warm, dry Discharge Results Procedures and tests throughout hospitalization: Pending Orders 02/20/17 [place] cholangiogram in surgery Routine Labs on day of discharge: Labs from last 24 hours 02/23/17 02/23/17 07:22 07:22 WBC 10.1 D RBC 3.93 Hgb 10.8 L Hct 35.2 L MCV 89.6 MCH 28 MCHC 30.7 L RDW 14.8 Plt Count 288 MPV 10.3 Neut % (Auto) 60.8 Lymph % (Auto) 27.1 [place] % (Auto) 8.9 Eos % (Auto) 2.3 Baso % (Auto) 0.6 Neut # (Auto) 6.1 Lymph # (Auto) 2.7 [place] # (Auto) 0.9 H Eos # (Auto) 0.2 Baso # (Auto) 0.1 Immature Gran % 0.3 Nucleated RBC % 0.0 Immature Gran # 0.03 Nucleated RBCs # 0.00 Sodium 143 Potassium 3.8 Chloride 105 Carbon Dioxide 33 H Anion Gap 8.8 BUN 5 L Creatinine 0.80 GFR Calculation 127 BUN/Creatinine Ratio 6.00 Glucose 98 Calculated Osmolality 281.0 Calcium 8.7 Total Bilirubin 0.50 AST 20 ALT 57 H Alkaline Phosphatase 58 Total Protein 6.8 Albumin 3.6 Globulin 3.2 Albumin/Globulin Ratio 1.1 DS: Provider Date of admission: 02/19/17 23:08 Primary care physician: . No PCP Attending physician on admission: Dave Lemus MD Consults: 02/20/17 08:06 Consult to Anesthesiology [CONS] Routine Consulting Provider: Reason for Anesthesiology: Pre-op Clearance Discharging clinician: Dave Lemus MD Expected date of discharge: 02/23/17
--- NOTE | 2017-02-28 07:31 | Fluoroscopy Report ---
[place] cholangiogram in surgery Indication: Abdominal pain. Cholecystectomy. Comparison: None. Technique: Injection of the cystic duct using intravenous contrast was performed intraoperatively. Multiple fluoroscopic images were then captured and stored. Total fluoroscopy time was 30.3 seconds. Findings: Normal filling of the extrahepatic bile duct and retrograde filling of the intrahepatic bile ducts appears within normal limits. There is no evidence of biliary duct dilatation, choledocholithiasis, or abnormal junction of the biliary and pancreatic systems. Filling of the small bowel appears within normal limits. Impression: 1. No significant abnormality of the biliary system is suggested. 02/28/2017 7:28 AM PROCEDURE INTERPRETED AT [facility] DEPARTMENT OF RADIOLOGY Final Report Signed by: Dr. Mendoza Rucker
== END 2017-02-23 13:19 | disposition home or self-care (01) | DRG 263 ==
LOC: N.ED 17:44 → N.EDINP 23:08 → N.3E 23:34
PROVIDERS: ADMIT Specialist; ATTEND Specialist
PROC: LAPCHOL (2017-02-20 12:44)